=== PATIENT | male | born 1975 | race Caucasian/White ===

== ENCOUNTER 2020-03-08 13:49 | Inpatient (IN) | payer MEDICAID ==
[~2020-03-08] VITALS: Ht 157.5 cm; Wt 55.3 kg
[2020-03-08] MEDS ORDERED: RISP1TAB27 PO (17:49)
[2020-03-08] MEDS ORDERED: QUET100T PO (17:49)
[2020-03-08] MEDS ORDERED: OLANZapine 5 MG RAPDIS TABLET PO PRN (20:00)
[2020-03-08] MEDS ORDERED: ACETAMINOPHEN 325 MG TABLET PO PRN (20:00)
[2020-03-08] MEDS ORDERED: MAGNESIUM HYDROXIDE SUSPENSION 30 ML UDCUP PO PRN (20:00)
[2020-03-08] MEDS ORDERED: MAG HYDROX/AL HYDROX/SIMETH ES 30 ML SUSPENSION UDCUP PO PRN (20:00)
[2020-03-08] MEDS ORDERED: LOPERAMIDE HCL 2 MG CAPSULE PO PRN (20:00)
[2020-03-08 20:48] VITALS: BP 145/102
[2020-03-08] MEDS ORDERED: OLANZapine 5 MG RAPDIS TABLET PO SCH (21:00)
[2020-03-09 05:18] VITALS: BP 119/77
[2020-03-09 08:13] LABS: BASOPHILS % (AUTO) 0.4 % (0.0-2.0); EOSINOPHILS % (AUTO) 6.3 % (1.0-6.0); HEMATOCRIT 38.5 % (41-53); HEMOGLOBIN 13.3 g/dL (13.5-17.5); LYMPHOCYTES # (AUTO) 2.1 K/uL (1.0-4.8); LYMPHOCYTES % (AUTO) 33.2 % (22.0-44.0); MEAN CORPUSCULAR HEMOGLOBIN 33.8 pg (26.0-34.0); MEAN CORPUSCULAR HGB CONC 34.7 G/dL (31.0-37.0); MEAN CORPUSCULAR VOLUME 98 fL (80-100); MONOCYTES # (AUTO) 0.8 K/uL (0.1-1.0); MONOCYTES % (AUTO) 12.1 % (2.0-9.0); NEUTROPHILS # (AUTO) 3.1 K/uL (1.8-7.7); PLATELET COUNT (AUTO) 224 K/uL (150-450); RED BLOOD CELL COUNT(AUTO) 3.95 MIL/uL (4.50-5.90); RED CELL DISTRIBUTION WIDTH 15.7 % (11.5-14.5)
[2020-03-09 08:25] VITALS: BP 114/86
[2020-03-09 08:34] LABS: HEMOGLOBIN A1C 4.9 % (3.8-5.6)
[2020-03-09 08:52] LABS: ALANINE AMINOTRANSFERASE 264 U/L (12-78); ALBUMIN 3.4 g/dL (3.4-5.0); ALKALINE PHOSPHATASE 90 U/L (46-116); ANION GAP 7 mmol/L (8-16); ASPARTATE AMINOTRANSFERASE 123 U/L (15-37); BILIRUBIN,TOTAL 0.8 mg/dL (0.1-1.0); CALCIUM, TOTAL 8.7 mg/dL (8.8-10.5); CARBON DIOXIDE 28 mmol/L (22-29); CHLORIDE 104 mmol/L (98-107); CHOL/HDL RATIO 2.7 (4.2-7.3); CHOLESTEROL 182 mg/dL (131-200); FREE T4 (FREE THYROXINE) 0.84 ng/dL (0.76-1.46); GLOMERULAR FILTR. RATE CALC > 60 mL/min (>60); GLUCOSE,RANDOM 85 mg/dL (70-110); HDL CHOLESTEROL 67 mg/dL (40-60); LDL CHOL (CALC.) 105 mg/dL (0-130); POTASSIUM 3.9 mmol/L (3.5-5.1); SODIUM SERUM 139 mmol/L (136-145); THYROID STIMULATING HORMONE 6.07 uIU/mL (0.36-3.74); TOTAL PROTEIN, SERUM 6.7 g/dL (6.4-8.2); TRIGLYCERIDES 48 mg/dL (15-150); UREA NITROGEN, BLOOD 25 mg/dL (7-18)
[2020-03-09] MEDS: FLUoxetine HCL 20 MG CAPSULE PO SCH (09:39)
[2020-03-09] MEDS: NALTREXONE HCL 50 MG TABLET PO SCH (09:40)
[2020-03-09] MEDS: NICOTINE 21 MG/24 HOUR PATCH TD SCH (09:41)
[2020-03-09] MEDS: OMEGA-3/DHA/EPA/FISH OIL 1,000 MG CAPSULE PO SCH (09:44)
[2020-03-09] MEDS ORDERED: GuaiFENesin/D-METHORPHAN [SUGAR-FREE] 200-20MG/10 ML SYRUP UDCUP PO PRN (15:15)
[2020-03-09] MEDS ORDERED: PROMETHAZINE HCL 25 MG TABLET PO PRN (15:15)
[2020-03-09] MEDS ORDERED: HydrOXYzine PAMOATE 50 MG CAPSULE PO PRN (15:15)
[2020-03-09] MEDS ORDERED: ACETAMINOPHEN 325 MG TABLET PO PRN (15:15)
[2020-03-09] MEDS ORDERED: TUBERCULIN, PURIFIED PROTEIN DERIVATIVE 5 TU/0.1 ML SYRINGE ID ONE (15:15)
[2020-03-09] MEDS ORDERED: QUEtiapine FUMARATE 100 MG TABLET PO PRN (15:15)
[2020-03-09] MEDS ORDERED: LORazepam 2 MG TABLET PO ONE (15:45)
[2020-03-09 16:05] VITALS: BP 111/68
[2020-03-09] MEDS: THIAMINE 100 MG TABLET PO SCH (16:41)
[2020-03-09] MEDS: ZOLPIDEM TARTRATE 10 MG TABLET PO PRN (20:25)
[2020-03-09] MEDS ORDERED: QUEtiapine FUMARATE 200 MG TABLET PO SCH (21:00)
[2020-03-09] MEDS: LORazepam 2 MG TABLET PO PRN (21:44)
[2020-03-10 06:43] VITALS: BP 120/83
[2020-03-10] MEDS: FOLIC ACID 1 MG TABLET PO SCH (08:30)
[2020-03-10] MEDS: FLUoxetine HCL 20 MG CAPSULE PO SCH (08:30)
[2020-03-10] MEDS: NALTREXONE HCL 50 MG TABLET PO SCH (08:30)
[2020-03-10] MEDS: OMEGA-3/DHA/EPA/FISH OIL 1,000 MG CAPSULE PO SCH (08:30)
[2020-03-10] MEDS: MULTIVITAMINS WITH MINERALS, THERAPEUTIC TABLET PO SCH (08:30)
[2020-03-10] MEDS: THIAMINE 100 MG TABLET PO SCH ×2 (08:30→16:01)
[2020-03-10] MEDS: NICOTINE 21 MG/24 HOUR PATCH TD SCH (08:30)
[2020-03-10 08:57] VITALS: BP 113/50
[2020-03-10 09:27] VITALS: BP 127/90
[2020-03-10] MEDS: LORazepam 2 MG TABLET PO PRN ×3 (09:27→21:08)
[2020-03-10 16:02] VITALS: BP 118/77
[2020-03-10] MEDS: QUEtiapine FUMARATE 200 MG TABLET PO SCH (20:14)
[2020-03-11] MEDS: LORazepam 2 MG TABLET PO PRN ×3 (03:29→20:04)
[2020-03-11 04:00] VITALS: BP 106/76
[2020-03-11 08:45] VITALS: BP 115/74
[2020-03-11] MEDS: FOLIC ACID 1 MG TABLET PO SCH (08:57)
[2020-03-11] MEDS: OMEGA-3/DHA/EPA/FISH OIL 1,000 MG CAPSULE PO SCH (08:57)
[2020-03-11] MEDS: FLUoxetine HCL 20 MG CAPSULE PO SCH (08:57)
[2020-03-11] MEDS: NALTREXONE HCL 50 MG TABLET PO SCH (08:57)
[2020-03-11] MEDS: MULTIVITAMINS WITH MINERALS, THERAPEUTIC TABLET PO SCH (08:57)
[2020-03-11] MEDS: THIAMINE 100 MG TABLET PO SCH ×2 (08:58→16:14)
[2020-03-11] MEDS: NICOTINE 21 MG/24 HOUR PATCH TD SCH (08:58)
[2020-03-11 16:11] VITALS: BP 121/85
[2020-03-11] MEDS: LOPERAMIDE HCL 2 MG CAPSULE PO PRN (19:40)
[2020-03-11] MEDS: QUEtiapine FUMARATE 200 MG TABLET PO SCH (20:04)
[2020-03-12 00:49] VITALS: BP 118/79
[2020-03-12] MEDS: LORazepam 2 MG TABLET PO PRN ×3 (07:14→20:35)
[2020-03-12] MEDS: NICOTINE 21 MG/24 HOUR PATCH TD SCH (09:00)
[2020-03-12] MEDS: FOLIC ACID 1 MG TABLET PO SCH (09:23)
[2020-03-12] MEDS: MULTIVITAMINS WITH MINERALS, THERAPEUTIC TABLET PO SCH (09:23)
[2020-03-12] MEDS: OMEGA-3/DHA/EPA/FISH OIL 1,000 MG CAPSULE PO SCH (09:23)
[2020-03-12] MEDS: FLUoxetine HCL 20 MG CAPSULE PO SCH (09:23)
[2020-03-12] MEDS: NALTREXONE HCL 50 MG TABLET PO SCH (09:23)
[2020-03-12] MEDS: THIAMINE 100 MG TABLET PO SCH ×2 (09:23→16:00)
[2020-03-12 09:37] VITALS: BP 113/76
[2020-03-12] MEDS: LOPERAMIDE HCL 2 MG CAPSULE PO PRN ×2 (15:59→20:35)
[2020-03-12 16:11] VITALS: BP 119/82
[2020-03-12] MEDS: QUEtiapine FUMARATE 200 MG TABLET PO SCH (20:20)
[2020-03-13 00:17] VITALS: BP 117/75
[2020-03-13 08:24] VITALS: BP 115/64
[2020-03-13] MEDS: FOLIC ACID 1 MG TABLET PO SCH (08:37)
[2020-03-13] MEDS: OMEGA-3/DHA/EPA/FISH OIL 1,000 MG CAPSULE PO SCH (08:37)
[2020-03-13] MEDS: FLUoxetine HCL 20 MG CAPSULE PO SCH (08:37)
[2020-03-13] MEDS: MULTIVITAMINS WITH MINERALS, THERAPEUTIC TABLET PO SCH (08:37)
[2020-03-13] MEDS: NALTREXONE HCL 50 MG TABLET PO SCH (08:37)
[2020-03-13] MEDS: THIAMINE 100 MG TABLET PO SCH ×2 (08:43→16:46)
[2020-03-13] MEDS: NICOTINE 21 MG/24 HOUR PATCH TD SCH (08:48)
[2020-03-13] MEDS: LORazepam 2 MG TABLET PO PRN ×3 (09:16→20:13)
[2020-03-13 16:03] VITALS: BP 116/74
[2020-03-13] MEDS ORDERED: QUEtiapine FUMARATE 300 MG TABLET PO SCH (21:00)
[2020-03-14 05:33] VITALS: BP 107/78
[2020-03-14 08:07] VITALS: BP 106/79
[2020-03-14] MEDS: THIAMINE 100 MG TABLET PO SCH ×2 (08:53→16:22)
[2020-03-14] MEDS: OMEGA-3/DHA/EPA/FISH OIL 1,000 MG CAPSULE PO SCH (08:53)
[2020-03-14] MEDS: FOLIC ACID 1 MG TABLET PO SCH (08:53)
[2020-03-14] MEDS: FLUoxetine HCL 20 MG CAPSULE PO SCH (08:53)
[2020-03-14] MEDS: MULTIVITAMINS WITH MINERALS, THERAPEUTIC TABLET PO SCH (08:53)
[2020-03-14] MEDS: NALTREXONE HCL 50 MG TABLET PO SCH (08:53)
[2020-03-14] MEDS: NICOTINE 21 MG/24 HOUR PATCH TD SCH (08:54)
[2020-03-14] MEDS: LORazepam 2 MG TABLET PO PRN ×2 (10:05→20:52)
[2020-03-14 16:05] VITALS: BP 113/72
[2020-03-14] MEDS: QUEtiapine FUMARATE 200 MG TABLET PO SCH (20:18)
[2020-03-15 00:01] VITALS: BP 106/64
[2020-03-15] MEDS: OMEGA-3/DHA/EPA/FISH OIL 1,000 MG CAPSULE PO SCH (08:21)
[2020-03-15] MEDS: NALTREXONE HCL 50 MG TABLET PO SCH (08:21)
[2020-03-15] MEDS: THIAMINE 100 MG TABLET PO SCH ×2 (08:21→17:12)
[2020-03-15] MEDS: FOLIC ACID 1 MG TABLET PO SCH (08:21)
[2020-03-15] MEDS: FLUoxetine HCL 20 MG CAPSULE PO SCH (08:21)
[2020-03-15] MEDS: MULTIVITAMINS WITH MINERALS, THERAPEUTIC TABLET PO SCH (08:21)
[2020-03-15] MEDS: NICOTINE 21 MG/24 HOUR PATCH TD SCH (08:22)
[2020-03-15 08:25] VITALS: BP 122/68
[2020-03-15] MEDS: LORazepam 2 MG TABLET PO PRN ×2 (11:44→21:43)
[2020-03-15 16:05] VITALS: BP 109/69
[2020-03-15] MEDS: QUEtiapine FUMARATE 200 MG TABLET PO SCH (20:17)
[2020-03-16 06:21] VITALS: BP 115/74
[2020-03-16 08:24] VITALS: BP 124/70
[2020-03-16] MEDS: OMEGA-3/DHA/EPA/FISH OIL 1,000 MG CAPSULE PO SCH (09:10)
[2020-03-16] MEDS: NALTREXONE HCL 50 MG TABLET PO SCH (09:10)
[2020-03-16] MEDS: NICOTINE 21 MG/24 HOUR PATCH TD SCH (09:11)
[2020-03-16] MEDS: FOLIC ACID 1 MG TABLET PO SCH (09:11)
[2020-03-16] MEDS: MULTIVITAMINS WITH MINERALS, THERAPEUTIC TABLET PO SCH (09:11)
[2020-03-16] MEDS: THIAMINE 100 MG TABLET PO SCH ×2 (09:11→17:06)
[2020-03-16] MEDS: FLUoxetine HCL 20 MG CAPSULE PO SCH (09:11)
[2020-03-16] MEDS: LORazepam 2 MG TABLET PO PRN ×2 (09:15→19:31)
[2020-03-16 16:19] VITALS: BP 126/80
[2020-03-16] MEDS: QUEtiapine FUMARATE 200 MG TABLET PO SCH (20:13)
[2020-03-16] MEDS: ZOLPIDEM TARTRATE 10 MG TABLET PO PRN (23:01)
[2020-03-17 01:28] VITALS: BP 102/65
[2020-03-17 08:09] VITALS: BP 116/60
[2020-03-17] MEDS: NALTREXONE HCL 50 MG TABLET PO SCH (08:27)
[2020-03-17] MEDS: FLUoxetine HCL 20 MG CAPSULE PO SCH (08:27)
[2020-03-17] MEDS: OMEGA-3/DHA/EPA/FISH OIL 1,000 MG CAPSULE PO SCH (08:28)
[2020-03-17] MEDS: FOLIC ACID 1 MG TABLET PO SCH (08:28)
[2020-03-17] MEDS: THIAMINE 100 MG TABLET PO SCH ×2 (08:28→17:19)
[2020-03-17] MEDS: NICOTINE 21 MG/24 HOUR PATCH TD SCH (08:28)
[2020-03-17] MEDS: MULTIVITAMINS WITH MINERALS, THERAPEUTIC TABLET PO SCH (08:28)
[2020-03-17] MEDS: LORazepam 2 MG TABLET PO PRN ×3 (09:10→18:41)
[2020-03-17 16:33] VITALS: BP 112/73
[2020-03-17] MEDS: QUEtiapine FUMARATE 200 MG TABLET PO SCH (20:18)
[2020-03-17] MEDS: ZOLPIDEM TARTRATE 10 MG TABLET PO PRN (20:18)
[2020-03-18 01:11] VITALS: BP 137/72
[2020-03-18 08:22] VITALS: BP 127/85
[2020-03-18] MEDS: OMEGA-3/DHA/EPA/FISH OIL 1,000 MG CAPSULE PO SCH (09:55)
[2020-03-18] MEDS: MULTIVITAMINS WITH MINERALS, THERAPEUTIC TABLET PO SCH (09:55)
[2020-03-18] MEDS: NALTREXONE HCL 50 MG TABLET PO SCH (09:55)
[2020-03-18] MEDS: FOLIC ACID 1 MG TABLET PO SCH (09:55)
[2020-03-18] MEDS: FLUoxetine HCL 20 MG CAPSULE PO SCH (09:56)
[2020-03-18] MEDS: NICOTINE 21 MG/24 HOUR PATCH TD SCH (09:56)
[2020-03-18] MEDS: THIAMINE 100 MG TABLET PO SCH ×2 (09:56→17:11)
[2020-03-18] MEDS: LORazepam 2 MG TABLET PO PRN ×2 (10:12→17:10)
[2020-03-18 16:12] VITALS: BP 129/78
[2020-03-18] MEDS: QUEtiapine FUMARATE 200 MG TABLET PO SCH (20:04)
[2020-03-18] MEDS: ZOLPIDEM TARTRATE 10 MG TABLET PO PRN (21:54)
[2020-03-19 01:58] VITALS: BP 102/73
[2020-03-19 08:41] VITALS: BP 120/80
[2020-03-19] MEDS: NALTREXONE HCL 50 MG TABLET PO SCH (09:54)
[2020-03-19] MEDS: THIAMINE 100 MG TABLET PO SCH (09:54)
[2020-03-19] MEDS: OMEGA-3/DHA/EPA/FISH OIL 1,000 MG CAPSULE PO SCH (09:54)
[2020-03-19] MEDS: MULTIVITAMINS WITH MINERALS, THERAPEUTIC TABLET PO SCH (09:54)
[2020-03-19] MEDS: NICOTINE 21 MG/24 HOUR PATCH TD SCH (09:54)
[2020-03-19] MEDS: FOLIC ACID 1 MG TABLET PO SCH (09:54)
[2020-03-19] MEDS: FLUoxetine HCL 20 MG CAPSULE PO SCH (09:54)
[2020-03-19] MEDS: LORazepam 2 MG TABLET PO PRN ×2 (10:55→17:20)
[2020-03-19 16:16] VITALS: BP 117/76
[2020-03-19] MEDS: QUEtiapine FUMARATE 200 MG TABLET PO SCH (20:06)
[2020-03-19] MEDS: ZOLPIDEM TARTRATE 10 MG TABLET PO PRN (21:29)
[2020-03-20 00:25] VITALS: BP 107/65
[2020-03-20 08:32] VITALS: BP 104/63
[2020-03-20] MEDS: FLUoxetine HCL 20 MG CAPSULE PO SCH (08:33)
[2020-03-20] MEDS: NALTREXONE HCL 50 MG TABLET PO SCH (08:33)
[2020-03-20] MEDS: MULTIVITAMINS WITH MINERALS, THERAPEUTIC TABLET PO SCH (08:33)
[2020-03-20] MEDS: OMEGA-3/DHA/EPA/FISH OIL 1,000 MG CAPSULE PO SCH (08:33)
[2020-03-20] MEDS: NICOTINE 21 MG/24 HOUR PATCH TD SCH (09:25)
[2020-03-20] MEDS: LORazepam 2 MG TABLET PO PRN ×3 (09:46→19:26)
[2020-03-20] MEDS ORDERED: PALIPERIDONE PALMITATE 234 MG/1.5 ML SYRINGE IM ONE (15:00)
[2020-03-20 16:33] VITALS: BP 107/69
[2020-03-20] MEDS: QUEtiapine FUMARATE 200 MG TABLET PO SCH (20:04)
[2020-03-20] MEDS: ZOLPIDEM TARTRATE 10 MG TABLET PO PRN (22:03)
[2020-03-21 00:38] VITALS: BP 118/77
[2020-03-21] MEDS: OMEGA-3/DHA/EPA/FISH OIL 1,000 MG CAPSULE PO SCH (08:46)
[2020-03-21] MEDS: MULTIVITAMINS WITH MINERALS, THERAPEUTIC TABLET PO SCH (08:46)
[2020-03-21] MEDS: NICOTINE 21 MG/24 HOUR PATCH TD SCH (08:47)
[2020-03-21] MEDS: NALTREXONE HCL 50 MG TABLET PO SCH (08:47)
[2020-03-21] MEDS: FLUoxetine HCL 20 MG CAPSULE PO SCH (08:47)
[2020-03-21] MEDS: LORazepam 2 MG TABLET PO PRN ×3 (08:53→21:12)
[2020-03-21 16:20] VITALS: BP 105/76
[2020-03-21] MEDS: QUEtiapine FUMARATE 200 MG TABLET PO SCH (20:02)
[2020-03-22 06:04] VITALS: BP 108/61
[2020-03-22 08:06] VITALS: BP 112/68
[2020-03-22] MEDS: NICOTINE 21 MG/24 HOUR PATCH TD SCH (09:00)
[2020-03-22] MEDS: FLUoxetine HCL 20 MG CAPSULE PO SCH (09:42)
[2020-03-22] MEDS: OMEGA-3/DHA/EPA/FISH OIL 1,000 MG CAPSULE PO SCH (09:42)
[2020-03-22] MEDS: MULTIVITAMINS WITH MINERALS, THERAPEUTIC TABLET PO SCH (09:42)
[2020-03-22] MEDS: NALTREXONE HCL 50 MG TABLET PO SCH (09:43)
[2020-03-22] MEDS: LORazepam 2 MG TABLET PO PRN (10:58)
[2020-03-22] MEDS ORDERED: NALT50TA PO (13:20)
[2020-03-22] MEDS ORDERED: QUET200T29 PO (13:20)
[2020-03-22] MEDS ORDERED: FLUO-191 PO (13:20)
[2020-03-22] MEDS ORDERED: OMEG-135 PO (13:20)
[2020-03-24] MEDS ORDERED: PALIPERIDONE PALMITATE 156 MG/ML SYRINGE IM ONE (09:00)
== END 2020-03-22 15:35 | disposition home or self-care (01) | DRG 750 ==
LOC: B2S 19:59
PROVIDERS: ADMIT Psychiatry & Neurology Psychiatry; ATTEND Psychiatry & Neurology Psychiatry
DX: F25.1 Schizoaffective disorder, depressive type (principal); F41.9 Anxiety disorder, unspecified; F17.210 Nicotine dependence, cigarettes, uncomplicated; D64.9 Anemia, unspecified; R45.851 Suicidal ideations; Z88.0 Allergy status to penicillin; Z59.0 Homelessness; Z79.899 Other long term (current) drug therapy
CPT/HCPCS: 83036; 84439; 84443; 86592; 87081